=== PATIENT | female | born 1990 ===

== ENCOUNTER 2018-03-02 10:07 | Emergency (ER) | payer MEDICAID ==
[2018-03-02] MEDS ORDERED: TDAP Vaccine 0.5 mL Syr IM ONE (10:22)
--- NOTE | 2018-03-02 10:27 | ED PDOC ---
Arrival/HPI - General Chief Complaint: Abnormal Skin Integrity Time Seen by Provider: 03/02/18 10:22 Historian: Patient - History of Present Illness Narrative History of Present Illness (Text): 03/02/18 10:24 This 27 yo female with pmh diabetes, presents to this ED c/o left arm bee sting x 3 hours ago. Patient stated she has never had a bee sting before. Patient went to work this morning, but her boss told her to come to hospital to get the bee sting check out. Patient pointed the area of bee sting, with mild redness and swelling. Patient otherwise feels well, on her normal state of life. Denies sob, generalized rash, dysphagia, wheezing, dizziness, drooling, swelling of tongue, pruritus, or abnormal gait. Time/Duration: Other (see hpi) Context: Home Past Medical History - Provider Review Nursing Documentation Reviewed: Yes - Infectious Disease Hx of Infectious Diseases: None - Endocrine/Metabolic Hx Diabetes Mellitus Type 2: Yes Hx Hypothyroidism: Yes - Psychiatric Hx Substance Use: No Family/Social History - Physician Review Nursing Documentation Reviewed: Yes Family/Social History: Other (noncontributory) Smoking Status: Never Smoked Hx Alcohol Use: No Hx Substance Use: No Allergies/Home Meds Allergies/Adverse Reactions: Allergies nitrofurantoin [From Macrobid] Allergy (Verified 03/02/18 10:15) URTICARIA Review of Systems - Review of Systems Constitutional: Normal. absent: Fatigue, Weight Change, Fevers Eyes: Normal ENT: Normal. absent: Sore Throat, Rhinorrhea, Epistaxis, Sinus Congestion Respiratory: Normal. absent: SOB, Cough Cardiovascular: Normal. absent: Chest Pain, Palpitations Gastrointestinal: Normal. absent: Abdominal Pain, Nausea, Vomiting Genitourinary Female: Normal. absent: Dysuria, Hematuria Musculoskeletal: Normal. absent: Neck Pain Skin: Other (See hpi). absent: Pruritis, Cellulitis Neurological: Normal. absent: Headache, Dizziness, Focal Weakness, Gait Changes , Speech Changes, Facial Droop, Disequilibrium, Seizure Endocrine: Normal Hemo/Lymphatic: Normal Psychiatric: Normal Physical Exam Vital Signs Temp Pulse Resp BP Pulse Ox 03/02/18 10:29 98.0 F 90 18 129/84 98 Temperature: Afebrile Blood Pressure: Normal Pulse: Regular Respiratory Rate: Normal Appearance: Positive for: Well-Appearing, Non-Toxic, Comfortable Pain Distress: None Mental Status: Positive for: Alert and Oriented X 3 - Systems Exam Head: Present: Atraumatic, Normocephalic Pupils: Present: PERRL Extroacular Muscles: Present: EOMI Conjunctiva: Present: Normal Mouth: Present: Moist Mucous Membranes Neck: Present: Normal Range of Motion Respiratory/Chest: Present: Clear to Auscultation, Good Air Exchange. No: Respiratory Distress, Accessory Muscle Use, Wheezes, Decreased Breath Sounds, Rales, Retracting, Rhonchi, Tachypneic Cardiovascular: Present: Regular Rate and Rhythm, Normal S1, S2. No: Murmurs Abdomen: No: Tenderness, Distention, Peritoneal Signs Back: Present: Normal Inspection. No: CVA Tenderness Upper Extremity: Present: Normal ROM, NORMAL PULSES, Neurovascularly Intact, Capillary Refill < 2s, Other (Approx. 4 cm round-like local allergic reaction noted on inner left arm, with a site of insect bite. No surrounding erythema or generalized rash noted). No: Cyanosis, Edema Lower Extremity: Present: Normal Inspection. No: Edema Neurological: Present: GCS=15, CN II-XII Intact, Speech Normal, Motor Func Grossly Intact, Normal Sensory Function, Normal Cerebellar Funct, Gait Normal Skin: Present: Warm, Dry, Normal Color. No: Rashes Psychiatric: Present: Alert, Oriented x 3, Normal Insight, Normal Concentration Medical Decision Making ED Course and Treatment: 03/02/18 11:27 Re-evaluation. Patient feels better. Discussed results and plan with patient who expresses understanding. All questions answered and there is agreement with the plan to discharge home with instructions. Patient stable for discharge. Return if symptoms persist or worsen. Patient was recommended to ED if she develops wheezing, SOB, Rash or worsening of insect bite, or skin infection. Lungs CTA b/l, no wheezing, no dysphagia, or strider Re-evaluation Time: 11:28 Reassessment Condition: Re-examined, Improved - Medication Orders Current Medication Orders: Discontinued Medications Tetanus/Reduced Diphtheria/Acell Pertussis (Boostrix Vaccine Inj) 0.5 ml IM .ONCE ONE Stop: 03/02/18 10:23 Last Admin: 03/02/18 11:03 Dose: 0.5 ml Immunization Registry Document 03/02/18 11:03 [email or web address] (Rec: 03/02/18 11:03 [email or web address] [id number]) Immunization Registry Consent Date 03/02/18 Triamcinolone Acetonide (Kenalog 0.1% Oint) 0 appl TOP STAT STA Stop: 03/02/18 10:24 Last Admin: 03/02/18 11:04 Dose: 0.1 applic Disposition/Present on Arrival - Present on Arrival Any Indicators Present on Arrival: No History of DVT/PE: No History of Uncontrolled Diabetes: No Urinary Catheter: No History of Decub. Ulcer: No History Surgical Site Infection Following: None - Disposition Have Diagnosis and Disposition been Completed?: Yes Diagnosis: Bee sting Disposition: HOME/ ROUTINE Disposition Time: 11:29 Patient Plan: Discharge Patient Problems: Current Active Problems Problem Status Onset Bee sting Acute Condition: IMPROVED Discharge Instructions (ExitCare): Insect Bites and Stings (DC) Additional Instructions: Call private doctor for follow up visit in 1-2 days. Return to ED if you develop shortness of breath, wheezing, generalized rash or worsening of bee sting or skin infection. Prescriptions: Cephalexin [Keflex] 500 mg PO QID #28 capsule Referrals: PCP,NO [Primary Care Provider] - Follow up with primary [facility] [Outside] - Follow up with primary [facility] [Outside] - Follow up with primary Forms: [facility] (Frisian), WORK NOTE
[2018-03-02 10:46] VITALS: BP 129/84; PULSE 90; RESP 18; TEMP 98
[2018-03-02 11:38] VITALS: O2SAT 99
== END 2018-03-02 11:38 | disposition home or self-care (01) ==
LOC: ED 10:07
DX: T63.441A Toxic effect of venom of bees, accidental (unintentional), initial encounter (principal); Y92.9 Unspecified place or not applicable; Z23 Encounter for immunization

== ENCOUNTER 2018-10-16 08:25 | Emergency (ER) | payer MEDICAID, OTHER ==
[2018-10-16 08:36] VITALS: BP 124/75; PULSE 82; RESP 16; TEMP 98; O2SAT 99
--- NOTE | 2018-10-17 01:16 | ED PDOC ---
Arrival/HPI - General Chief Complaint: ENT Problem Time Seen by Provider: 10/16/18 08:40 Historian: Patient - History of Present Illness Narrative History of Present Illness (Text): 28 y/o female with PMH of DM and hypothyroidism presents to the ED c/o left ear pain x 4 days. Patient thinks he may have gotten water in his ear a few days ago while showering and has since developed worsening achey left ear pain with associated mild hearing loss. Denies fevers, chills, headache, vision changes, dizziness, neck pain, abdominal pain, N/V, vertigo, tinnitus, ear drainage, mastoid tenderness, chest pain, SOB, or any other associated symptoms. Past Medical History - Provider Review Nursing Documentation Reviewed: Yes - Infectious Disease Hx of Infectious Diseases: None - Reproductive Menopause: No - Cardiac Hx Cardiac Disorders: No - Endocrine/Metabolic Hx Diabetes Mellitus Type 2: Yes Hx Hypothyroidism: Yes - Psychiatric Hx Substance Use: No - Anesthesia Hx Anesthesia: No Family/Social History - Physician Review Nursing Documentation Reviewed: Yes Family/Social History: No Known Family HX Smoking Status: Never Smoked Hx Alcohol Use: No Hx Substance Use: No Allergies/Home Meds Allergies/Adverse Reactions: Allergies nitrofurantoin [From Macrobid] Allergy (Verified 03/02/18 10:15) URTICARIA Review of Systems - Physician Review All systems were reviewed & negative as marked: Yes - Review of Systems Constitutional: Normal. absent: Fatigue, Weight Change, Fevers, Night Sweats, Other Eyes: Normal. absent: Vision Changes, Photophobia, Eye Pain, Other ENT: Hearing Changes, Other (left ear pain and fullness). absent: Sore Throat, Rhinorrhea, Epistaxis, Sinus Congestion (decreased left ear) Respiratory: Normal. absent: SOB, Cough, Sputum, Wheezing, Other Cardiovascular: Normal. absent: Chest Pain, Palpitations, Edema, Calf Pain, GAMEZ, Orthopnea, SY, Syncope, Other Gastrointestinal: Normal. absent: Abdominal Pain, Stool Changes, Constipation, Diarrhea, Nausea, Vomiting, Appetite Changes, Hematochezia, Hematemesis, Anorexia, Food Intolerance, Other Genitourinary Female: Normal Musculoskeletal: Normal. absent: Arthralgias, Back Pain, Neck Pain, Joint Swelling, Myalgias, Other Skin: Normal. absent: Rash, Pruritis, Skin Lesions, Laceration, Abscess, Ulcer, Cellulitis, Other Neurological: Normal. absent: Headache, Dizziness, Focal Weakness, Gait Changes, Speech Changes, SC, Facial Droop, DE, Disequilibrium, SE, Seizure, Other Endocrine: Normal. absent: Diaphoresis, Polyuria, Polydipsia, Other Hemo/Lymphatic: Normal. absent: Adenopathy, Easy Bleeding, Easy Bruising, Other Psychiatric: Normal Physical Exam Vital Signs Reviewed: Yes Vital Signs Temp Pulse Resp BP Pulse Ox 10/16/18 08:31 98 F 82 16 124/75 99 Temperature: Afebrile Blood Pressure: Normal Pulse: Regular Respiratory Rate: Normal Appearance: Positive for: Well-Appearing, Non-Toxic, Comfortable Pain Distress: None Mental Status: Positive for: Alert and Oriented X 3 - Systems Exam Head: Present: Atraumatic, Normocephalic Pupils: Present: PERRL Extroacular Muscles: Present: EOMI Conjunctiva: Present: Normal Ears: Present: Erythema, Other (Right ear normal; Left ear: pain on pinna pull, erythematous, mildly swollen canal with purulent material, TM normal; NO mastoid tenderness or bogginess bilaterally) Mouth: Present: Moist Mucous Membranes Pharnyx: Present: Normal. No: ERYTHEMA, EXUDATE, TONSILS ENLARGED Nose (External): Present: Atraumatic Nose (Internal): Present: Normal Inspection, Moist Neck: Present: Normal Range of Motion Respiratory/Chest: Present: Clear to Auscultation, Good Air Exchange. No: Respiratory Distress, Accessory Muscle Use Cardiovascular: Present: Regular Rate and Rhythm, Normal S1, S2, Peripheal Pulses Present. No: Murmurs Abdomen: Present: Normal Bowel Sounds. No: Tenderness, Distention, Peritoneal Signs Back: Present: Normal Inspection. No: CVA Tenderness Upper Extremity: Present: Normal Inspection, Normal ROM, NORMAL PULSES, Neurovascularly Intact, Capillary Refill < 2s. No: Cyanosis, Edema Lower Extremity: Present: Normal Inspection, Normal ROM Neurological: Present: GCS=15, CN II-XII Intact, Speech Normal, Motor Func Grossly Intact, Normal Sensory Function, Gait Normal Skin: Present: Warm, Dry, Normal Color. No: Rashes Lymphatic: No: Cervical Adenopathy Psychiatric: Present: Alert, Oriented x 3, Normal Insight, Normal Concentration, Normal Affect, Normal Mood Medical Decision Making ED Course and Treatment: Diagnostic testing results and plan of care discussed with patient, and strict instructions given regarding prescriptions, importance of follow up, and signs to return to Emergency Department, to include hearing loss, worsening pain, vision changes, dizziness, or any other new/worsening symptoms. Patient verbalizes understanding of discussion. Patient A&Ox3, ambulating with steady gait, stable for discharge home. Disposition/Present on Arrival - Present on Arrival Any Indicators Present on Arrival: No History of DVT/PE: No History of Uncontrolled Diabetes: No Urinary Catheter: No History of Decub. Ulcer: No History Surgical Site Infection Following: None - Disposition Have Diagnosis and Disposition been Completed?: Yes Diagnosis: Otitis externa Disposition: HOME/ ROUTINE Disposition Time: 09:20 Condition: GOOD Discharge Instructions (ExitCare): Outer Ear Infection (DC) Additional Instructions: Ear drops 10 drops once daily x 7 days Ibuprofen every 8 hours as needed Followup with ENT within 2 days Followup with primary doctor within 2 days Return to ER with any new/worsening symptoms Prescriptions: Ibuprofen [Motrin Tab] 600 mg PO Q8H PRN #30 tab PRN Reason: Pain, Mild (1-3) Ofloxacin Otic 0.3% [Floxin 0.3% Otic Soln] 10 drop DAILY #1 bottle Referrals: Demarcus Alvarez DO [Staff Provider] - Follow up with primary Forms: [facility] (Luxembourger), WORK NOTE
== END 2018-10-16 09:30 | disposition home or self-care (01) ==
LOC: ED 08:25
DX: H60.92 Unspecified otitis externa, left ear (principal); E11.9 Type 2 diabetes mellitus without complications; E03.9 Hypothyroidism, unspecified

== ENCOUNTER 2018-12-22 16:04 | Emergency (ER) | payer OTHER ==
[2018-12-22 16:21] VITALS: RESP 18; O2SAT 97
--- NOTE | 2018-12-22 16:30 | ED PDOC ---
Arrival/HPI - General Chief Complaint: Palpitations Time Seen by Provider: 12/22/18 16:08 Historian: Patient - History of Present Illness Narrative History of Present Illness (Text): 12/22/18 16:27 A 28 year old female, whose past medical history includes diabetes and hypothyroidism, presents to the emergency department complaining of palpitations, chest pain, shortness of breath, and lightheadedness for the past 3 days. Patient reports she has also been depressed for the past 1 month and she is one a new anti-depressant for the past 3 weeks. Patient notes she is a light smoker and denies any alcohol or drug use. Patient denies any headache, dizziness, or any other complaints. PMD: Bruna Miller Time/Duration: < week (3 days) Symptom Onset: Gradual Symptom Course: Unchanged Activities at Onset: Light Context: Home Associated Symptoms (Text): 12/22/18 16:48 Steady chest pain and palpitations dyspnea and lightheadedness for the last 3 days. Past Medical History - Provider Review Nursing Documentation Reviewed: Yes - Infectious Disease Hx of Infectious Diseases: None - Reproductive Menopause: No - Cardiac Hx Cardiac Disorders: No - Endocrine/Metabolic Hx Diabetes Mellitus Type 2: Yes Hx Hypothyroidism: Yes - Psychiatric Hx Substance Use: No - Anesthesia Hx Anesthesia: No Family/Social History - Physician Review Nursing Documentation Reviewed: Yes Family/Social History: No Known Family HX Smoking Status: Light Smoker < 10 Cigarettes Daily Hx Alcohol Use: No Hx Substance Use: No Allergies/Home Meds Allergies/Adverse Reactions: Allergies nitrofurantoin [From Macrobid] Allergy (Verified 03/02/18 10:15) URTICARIA Review of Systems - Physician Review All systems were reviewed & negative as marked: Yes - Review of Systems Constitutional: absent: Fatigue, Fevers Respiratory: SOB. absent: Cough, Wheezing Cardiovascular: Chest Pain, Palpitations. absent: Syncope Gastrointestinal: absent: Abdominal Pain, Diarrhea, Vomiting Neurological: Other (lightheadedness). absent: Headache, Dizziness, Focal Weakness Physical Exam Vital Signs Reviewed: Yes Vital Signs Temp Pulse Resp BP Pulse Ox 12/22/18 16:17 99.2 F 94 H 18 142/89 97 Temperature: Afebrile Blood Pressure: Normal Pulse: Regular Respiratory Rate: Normal Appearance: Positive for: Well-Appearing Pain Distress: None Mental Status: Positive for: Alert and Oriented X 3 - Systems Exam Head: Present: Atraumatic, Normocephalic Pupils: Present: PERRL Extroacular Muscles: Present: EOMI Conjunctiva: Present: Normal Mouth: Present: Moist Mucous Membranes Pharnyx: No: ERYTHEMA, EXUDATE, TONSILS ENLARGED Respiratory/Chest: Present: Clear to Auscultation, Good Air Exchange. No: Respiratory Distress, Accessory Muscle Use Cardiovascular: Present: Regular Rate and Rhythm, Normal S1, S2. No: Murmurs Abdomen: No: Tenderness, Distention, Peritoneal Signs Back: Present: Normal Inspection Upper Extremity: Present: Normal Inspection. No: Cyanosis, Edema Lower Extremity: Present: Normal Inspection. No: Edema Neurological: Present: GCS=15, CN II-XII Intact, Speech Normal, Motor Func Grossly Intact Skin: Present: Warm, Dry, Normal Color. No: Rashes Psychiatric: Present: Alert, Oriented x 3, Normal Insight, Normal Concentration Medical Decision Making ED Course and Treatment: 12/22/18 16:27 Impression: 28 year old female presenting to the emergency room complaining of palpitations, chest pain, shortness of breath, and lightheadedness. Plan: -- EKG -- Labs -- CBC -- Chest X-ray -- Urinalysis -- Reassess and disposition Prior Visits: Notes and results from previous visits were reviewed. Progress Notes: 12/22/18 16:49 EKG shows normal sinus rhythm rate approximately 75 with occasional unifocal PVCs and no acute ST or T wave changes. 12/22/18 18:50 Blood sugar is improved. TSH is elevated. Patient reports that she is currently taking Synthroid 175 mics daily. She has been on this dose for the last 6 months. She will need to follow-up with her protective signal repairer helper about her elevated blood sugar and elevated TSH. She also needs to see her PMD as I suggested to her that she will need a cardiac workup probably including Holter monitor stress test and echocardiogram. Her cardiogram shows occasional unifocal PVCs only. Troponin is negative. She does have a PMD that she is able to follow-up with and will do so next week. She needs a referral to see a specialist. Follow-up in the ER as needed. - RAD Interpretation Radiology Orders: Chest one view shows no infiltrate effusion or cardiomegaly as read by the radiologist. Maturity Checker: Radiologist - Scribe Statement The provider has reviewed the documentation as recorded by the Yola Ramires All medical record entries made by the Scribe were at my direction and personally dictated by me. I have reviewed the chart and agree that the record accurately reflects my personal performance of the history, physical exam, medical decision making, and the department course for this patient. I have also personally directed, reviewed, and agree with the discharge instructions and disposition. Disposition/Present on Arrival - Present on Arrival Any Indicators Present on Arrival: No History of DVT/PE: No History of Uncontrolled Diabetes: No Urinary Catheter: No History of Decub. Ulcer: No History Surgical Site Infection Following: CABG - Mediastinitis, None - Disposition Have Diagnosis and Disposition been Completed?: Yes Diagnosis: Hyperglycemia, Hypothyroidism, Premature ventricular contractions (PVCs) (VPCs) Disposition: HOME/ ROUTINE Disposition Time: 18:52 Patient Plan: Discharge Patient Problems: Current Active Problems Problem Status Onset Hyperglycemia Acute Hypothyroidism Acute Premature ventricular contractions (PVCs) (VPCs) Acute Condition: GOOD Discharge Instructions (ExitCare): Hypothyroidism (Underactive Thyroid), Ventricular Premature Beats, Hyperglycemia, Adult, Arrhythmias (DC), Hyperglycemia, Adult (DC), Blood Glucose Monitoring Additional Instructions: Must follow-up with PMD about elevated blood sugar elevated TSH and PVCs. Will need referrals for endocrinology and cardiology. Forms: [facility] (Swedish), WORK NOTE
[2018-12-22 17:12] LABS: ACETAMINOPHEN < 10.0 ug/ml (10.0-20.0); SALICYLATE < 1 mg/dL (2.0-20.0)
[2018-12-22 17:14] LABS: URINE BILIRUBIN NEGATIVE (NEGATIVE); URINE BLOOD SMALL (NEGATIVE); URINE GLUCOSE (UA) >=1000 mg/dL (NEGATIVE); URINE LEUKOCYTE ESTERASE NEGATIVE Leu/uL (NEGATIVE); URINE PROTEIN NEGATIVE mg/dL (<30 mg/dL); URINE UROBILINOGEN 0.2 E.U./dL (<1 E.U./dL)
[2018-12-22 17:16] LABS: URINE APPEARANCE SL CLOUDY (CLEAR); URINE COLOR YELLOW (YELLOW)
[2018-12-22 17:19] LABS: ALB/GLOB RATIO 1.2 (1.1-1.8); ALBUMIN 4.1 g/dL (3.0-4.8); ALT/SGPT 34 U/L (7-56); AST/SGOT 50 U/L (14-36); BLOOD UREA NITROGEN 11 mg/dL (7-21); CALCIUM 9.7 mg/dL (8.4-10.5); GFR NON-AFRICAN AMERICAN > 60
[2018-12-22] MEDS ORDERED: Insulin Regular 1 UNITS/0.01 ML ML SC STA (17:20)
[2018-12-22 17:24] LABS: HEMOGLOBIN 12.6 g/dL (12.0-16.0); RBC 4.54 10^6/uL (3.5-6.1); WHITE BLOOD COUNT 8.1 10^3/uL (4.5-11.0)
[2018-12-22 17:25] LABS: BASO # 0.01 K/mm3 (0.0-2.0); BASO % 0.1 % (0.0-3.0); EOS # 0.1 (0.0-0.7); EOS % 1.2 % (1.5-5.0); LYMPH # 2.7 (1.2-3.4); LYMPH % 33.7 % (22.0-35.0); MEAN CELL VOLUME 82.2 fl (80.0-105.0); MEAN CORPUSCULAR HEMOGLOBIN 27.8 pg (25.0-35.0); MEAN CORPUSCULAR HGB CONC 33.8 g/dl (31.0-37.0); MEAN PLATELET VOLUME 11.3 fl (7.0-11.0); MONO # 0.4 (0.1-0.6); MONO % 4.8 % (1.0-6.0)
[2018-12-22 17:32] LABS: TROPONIN I < 0.01 ng/mL
[2018-12-22 17:42] LABS: URINE BACTERIA SMALL /hpf; URINE RBC 0 - 2 /hpf (0-2)
[2018-12-22 18:13] LABS: BARBITURATES, UR NEGATIVE (NEGATIVE); BENZODIAZEPINES, UR NEGATIVE (NEGATIVE); OPIATES, UR NEGATIVE (NEGATIVE); PHENCYCLIDINE, UR NEGATIVE (NEGATIVE)
--- NOTE | 2018-12-22 18:31 | RAD ---
Date of service: 12/22/2018 HISTORY: Palpitations. COMPARISON: No prior. FINDINGS: LUNGS: No active pulmonary disease. PLEURA: No significant pleural effusion identified, no pneumothorax apparent. CARDIOVASCULAR: No atherosclerotic calcification present Normal. OSSEOUS STRUCTURES: No significant abnormalities. VISUALIZED UPPER ABDOMEN: Normal. OTHER FINDINGS: None. IMPRESSION: No active disease.
[2018-12-22 18:34] VITALS: BP 112/76; PULSE 77; TEMP 98.1
--- NOTE | 2018-12-22 23:21 | CARD ---
APPROVED REPORT Date of service: 12/22/2018 EKG Measurement Heart [id number] <Conclusion> Sinus rhythm with occasional premature ventricular complexes Otherwise normal ECG
== END 2018-12-22 19:19 | disposition home or self-care (01) ==
LOC: ED 16:04
DX: R07.9 Chest pain, unspecified (principal); E11.65 Type 2 diabetes mellitus with hyperglycemia; I49.3 Ventricular premature depolarization; F17.210 Nicotine dependence, cigarettes, uncomplicated; E03.9 Hypothyroidism, unspecified

== ENCOUNTER 2019-01-05 14:53 | Emergency (ER) | payer OTHER ==
[2019-01-05 15:53] VITALS: BMI 36.6
--- NOTE | 2019-01-05 16:31 | ED PDOC ---
Arrival/HPI - General Chief Complaint: Lower Extremity Problem/Injury Time Seen by Provider: 01/05/19 14:58 Historian: Patient - History of Present Illness Narrative History of Present Illness (Text): 01/05/19 16:26 28F w/ h/o diabetes, hypothyrodism and diabetes presenting to the Emergency Room with complaint of left foot swelling that began yesterday morning. She describes an area of erythema that had increased in size over the past 24 hours. The patient reports swelling of the the food that has made ambulation difficult over the day. She had been unable to walk on it without pain. The patient denies any recent boils, pimples or recent breaks in the skin that she can recall in the immediate area. She denies any recent fevers, chills, abdominal pain, nausea, emesis, syncopal episodes or weakness at this time. Time/Duration: 24 hours Symptom Onset: Gradual Symptom Course: Unchanged Activities at Onset: Rest Context: Home, Work Past Medical History - Provider Review Nursing Documentation Reviewed: Yes - Travel History Have you recently traveled outside [place] w/in the past 3 mons?: No - Infectious Disease Hx of Infectious Diseases: None - Cardiac Hx Cardiac Disorders: No - Endocrine/Metabolic Hx Diabetes Mellitus Type 2: Yes Hx Hypothyroidism: Yes - Psychiatric Hx Bipolar Disorder: Yes Hx Depression: Yes Hx Substance Use: No - Anesthesia Hx Anesthesia: No Family/Social History - Physician Review Nursing Documentation Reviewed: Yes Family/Social History: Unknown Family HX Smoking Status: Light Smoker < 10 Cigarettes Daily Hx Alcohol Use: Yes Frequency of alcohol use: Socially Hx Substance Use: No Allergies/Home Meds Allergies/Adverse Reactions: Allergies nitrofurantoin [From Macrobid] Allergy (Verified 01/05/19 15:53) URTICARIA Review of Systems - Physician Review All systems were reviewed & negative as marked: Yes - Review of Systems Musculoskeletal: Myalgias Skin: Cellulitis Physical Exam Vital Signs Reviewed: Yes Vital Signs Temp Pulse Resp BP Pulse Ox 01/05/19 14:54 97.7 F 91 H 18 115/77 98 Temperature: Afebrile Blood Pressure: Normal Pulse: Regular Respiratory Rate: Normal Appearance: Positive for: Well-Appearing, Non-Toxic, Comfortable Mental Status: Positive for: Alert and Oriented X 3 - Systems Exam Head: Present: Atraumatic, Normocephalic Pupils: Present: PERRL Extroacular Muscles: Present: EOMI Conjunctiva: Present: Normal Mouth: Present: Moist Mucous Membranes Neck: Present: Normal Range of Motion Respiratory/Chest: Present: Clear to Auscultation, Respiratory Distress Cardiovascular: Present: Regular Rate and Rhythm, Normal S1, S2 Abdomen: Present: Normal Bowel Sounds. No: Tenderness, Distention Lower Extremity: Present: Swelling, Capillary Refill < 2 s, Other (erythema noted to dorsum of foot) Neurological: Present: GCS=15, Speech Normal Skin: Present: Warm, Dry, Rashes (circumferential erythematous rash extendin), Normal Color Psychiatric: Present: Alert, Oriented x 3, Normal Insight, Normal Concentration Medical Decision Making ED Course and Treatment: 01/05/19 16:34 Impression Differential Diagnoses Include But Are Not Limited To: Plan Progress Notes - Lab Interpretations Lab Results: 01/05/19 17:12 01/05/19 17:12 Lab Results 01/05/19 17:12: Sodium 134, Potassium 4.1, Chloride 99, Carbon Dioxide 26, Anion Gap 13, BUN 9, Creatinine 0.3 L, Est GFR ( Amer) > 60, Est GFR (Non-Af Amer) > 60, Random Glucose 357 H*, Calcium 9.4, Total Bilirubin 0.7, AST 30, ALT 27, Alkaline Phosphatase 84, Total Protein 8.2, Albumin 4.3, Globulin 3.8, Albumin/Globulin Ratio 1.1 01/05/19 17:12: WBC 8.9, RBC 4.59, Hgb 12.7, Hct 38.2, MCV 83.2, MCH 27.7, MCHC 33.2, RDW 13.7, Plt Count 242, MPV 10.8, Neut % (Auto) 62.0, Lymph % (Auto) 32.2, [place] % (Auto) 4.6, Eos % (Auto) 1.0 L, Baso % (Auto) 0.2, Lymph # (Auto) 2.9, [place] # (Auto) 0.4, Eos # (Auto) 0.1, Baso # (Auto) 0.02, Absolute Neuts (auto) 5.52 I have reviewed the lab results: Yes - RAD Interpretation Radiology Orders: 01/05/19 16:24 FOOT LEFT 3 VIEWS ROUTINE [RAD] Stat - Medication Orders Current Medication Orders: 01/05/19 18:24 Discontinued Medications Clindamycin HCl (Cleocin) 300 mg PO STAT STA; Protocol Stop: 01/05/19 18:22 Disposition/Present on Arrival - Present on Arrival Any Indicators Present on Arrival: No History of DVT/PE: No History of Uncontrolled Diabetes: No Urinary Catheter: No History of Decub. Ulcer: No History Surgical Site Infection Following: CABG - Mediastinitis, None - Disposition Have Diagnosis and Disposition been Completed?: Yes Diagnosis: Cellulitis Disposition: HOME/ ROUTINE Disposition Time: 18:26 Patient Plan: Discharge Condition: STABLE Discharge Instructions (ExitCare): Cellulitis (ED) Print Language: KAZAKH Additional Instructions: All medical record entries made by the Scribe were at my direction and personally dictated by me. I have reviewed the chart and agree that the record accurately reflects my personal performance of the history, physical exam, medical decision making, and the department course for this patient. I have also personally directed, reviewed, and agree with the discharge instructions and disposition. Please take medication as prescribed Please follow up with your PCP in 1-2 weeks Prescriptions: Clindamycin [Cleocin] 300 mg PO BID 10 Days #20 cap Referrals: Monie Carias MD [Medical Doctor] - Follow up with primary [facility] [place] [Outside] - Follow up with primary Forms: [employer] (Czech), WORK NOTE
[2019-01-05 17:20] LABS: BASO # 0.02 K/mm3 (0.0-2.0); BASO % 0.2 % (0.0-3.0); EOS # 0.1 (0.0-0.7); HEMOGLOBIN 12.7 g/dL (12.0-16.0); LYMPH # 2.9 (1.2-3.4); LYMPH % 32.2 % (22.0-35.0); MEAN CELL VOLUME 83.2 fl (80.0-105.0); MEAN CORPUSCULAR HEMOGLOBIN 27.7 pg (25.0-35.0); MEAN CORPUSCULAR HGB CONC 33.2 g/dl (31.0-37.0); MEAN PLATELET VOLUME 10.8 fl (7.0-11.0); MONO # 0.4 (0.1-0.6); MONO % 4.6 % (1.0-6.0); RBC 4.59 10^6/uL (3.5-6.1); RED CELL DISTRIBUTION WIDTH 13.7 % (11.5-14.5); WHITE BLOOD COUNT 8.9 10^3/uL (4.5-11.0)
[2019-01-05 17:42] LABS: ALB/GLOB RATIO 1.1 (1.1-1.8); ALBUMIN 4.3 g/dL (3.0-4.8); ALT/SGPT 27 U/L (7-56); AST/SGOT 30 U/L (14-36); BLOOD UREA NITROGEN 9 mg/dL (7-21); CALCIUM 9.4 mg/dL (8.4-10.5); GFR NON-AFRICAN AMERICAN > 60
--- NOTE | 2019-01-05 17:46 | RAD ---
Date of service: 01/05/2019 PROCEDURE: Left Foot Radiographs. HISTORY: foot swelling COMPARISON: None. FINDINGS: BONES: Normal. No fracture. JOINTS: Normal. SOFT TISSUES: Normal. OTHER FINDINGS: None. IMPRESSION: No acute fracture or dislocation.
[2019-01-05 18:17] VITALS: BP 102/56; PULSE 78; RESP 17; TEMP 98.1; O2SAT 97
== END 2019-01-05 19:13 | disposition home or self-care (01) ==
LOC: ED 14:53
DX: L03.116 Cellulitis of left lower limb (principal); E11.9 Type 2 diabetes mellitus without complications; E03.9 Hypothyroidism, unspecified; F17.210 Nicotine dependence, cigarettes, uncomplicated